=== PATIENT | male | born 1975 | race Caucasian/White ===

== ENCOUNTER 2023-07-26 11:06 | Emergency (ER) | payer MEDICARE, SELFPAY ==
[2023-07-26 11:16] VITALS: BP 151/90; PULSE 83; RESP 20; TEMP 36.8; O2SAT 93
--- NOTE | 2023-07-26 11:18 | ED.C_ITS ---
HPI - Psych 2 General: Chief Complaint: Psychiatric Symptoms Stated Complaint: MHE Time Seen by Provider: 07/26/23 11:07 Source: patient and EMS Mode of arrival: EMS Limitations: altered mental status (cognitive limitation) History of Present Illness: Patient reports generalized feeling of wanting to hurt people. Denies any SI or AVH. However to nurse he reported not wanting to hurt others but wanting to hurt himself. Reports a history of anxiety and depression. Also high blood pressure. And reflux Review of Systems 2 General: Reports: 10 or more systems reviewed and unremarkable except in HPI and below Physical Exam 2 Const: COMMON NORMALS: no acute distress, average body habitus, patient oriented x3, healthy appearing, alert and well nourished GENERAL APPEARANCE: well kempt and well developed HENMT: COMMON NORMALS: normocephalic, atraumatic, external ears normal and moist oral mucous membranes HEAD & SCALP: normocephalic and atraumatic E XTERNAL EAR: Yes external ears normal Eye: COMMON NORMALS: Equal, round and reactive pupils present, EOMs intact bilaterally and conjunctivae normal CONJUNCTIVA: Yes conjunctivae normal P UPIL: Yes Equal, round and reactive pupils present Neck/C-Spine: COMMON NORMALS: full ROM, no lymphadenopathy and supple Chest: CHEST: Yes Symmetrical chest wall rise and No Surgical scars present (Chest) Resp: COMMON NORMALS: normal respiratory effort, No retractions, No use of accessory muscles and clear to auscultation bilaterally AUSCULTATION: clear to auscultation bilaterally Cardio: COMMON NORMALS: regular rate, regular rhythm, S1 normal heart sound present, S2 normal heart sound present, No gallops present (Cardio), No clicks present (Cardio), No murmurs present (Cardio) and No rub (Cardio) RATE: r egular rate RHYTHM: regular rhythm HEART SOUNDS: S1 normal heart sound present, S2 normal heart sound present and no murmurs PERIPHERAL PULSES: o ther (Radial pulses 2+ and symmetric) GI: COMMON NORMALS: Soft to palpation, non-tender and no masses INSPECTION: No abdominal distension PALPATION: Yes Soft to palpation, No Guarding due to palpation present (GI) and No Rebound tenderness present : COMMON NORMALS: Yes no CVA tenderness BLADDER/KIDNEY EXAM: Yes no CVA tenderness Back/Pelvis: COMMON NORMALS: no CVA tenderness Extremity: COMMON NORMALS: normal to inspection, full ROM, capillary refill normal and no clubbing, cyanosis or edema Neuro: COMMON NORMALS: patient oriented x3 SENSORIUM/ORIENTATION: Yes alert Psych: COMMON NORMALS: cooperative, normal affect, speech normal, denies hallucinations and denies suicidal ideation (But reported SI to nurse) A PPEARANCE: Yes well kempt ATTITUDE: Yes calm ACTIVITY/MOTOR BEHAVIOR: Yes appropriate eye contact SPEECH: Yes normal speech MOOD & AFFECT: Yes elevated mood, No tearful and No Flat affect present THOUGHT PROCESS: No incoherent and no flight of ideas THOUGHT CONTENT: Yes Suicidality present (reported to nurse, denied to me), Yes Homicidality present (reported to me, generalized no specific person, denied to nurse) and No Hallucination(s) present ATTENTION/CONCENTRATION: Yes attention grossly intact MEMORY/COGNITION: Y es memory grossly intact INSIGHT: Fair insight present (Psych) JUDGEMENT: Limited judgement present (Psych) Skin: COMMON NORMALS: no rashes or lesions noted, no wounds, turgor normal and no jaundice GENERAL SKIN EXAM: no rashes or lesions noted and turgor normal Course 2 Reevaluation(s): Reevaluation #1: Labs returned unremarkable. Patient stable. Medically cleared for psych eval. Time: 12:23 Vital Signs: Vital signs: Vital Signs Temperature 98.3 F 07/26/23 11:16 Pulse Rate 83 07/26/23 11:16 Respiratory Rate 20 H 07/26/23 11:16 Blood Pressure 151/90 07/26/23 11:16 Pulse Oximetry 93 07/26/23 11:16 [facility] - Psych Medical Decision Making Patient complained to nurse SI, to me HI. Will get psychiatric screening labs and work on psych eval. psychiatrist Dr. Atkins consulted and came to evaluate patient. Reports the patient is okay for discharge back to nursing home. Lab Data 07/26/23 11:26 07/26/23 11:26 Laboratory Results WBC 6.36 10^3/uL (3.29-11.43) 07/26/23 11:26 RBC 5.11 10^6/uL (3.85-5.65) 07/26/23 11:26 Hgb 14.60 g/dL (11.27-16.99) 07/26/23 11:26 Hct 43.6 % (37-53) 07/26/23 11:26 MCV 85.3 fl (82-101) 07/26/23 11:26 MCH 28.6 pg (27-33) 07/26/23 11:26 MCHC 33.5 g/dL (30-55) 07/26/23 11:26 RDW 13.3 % (12.1-15.1) 07/26/23 11:26 Plt Count 230 10^3/cmm (157-399) 07/26/23 11:26 MPV 9.6 fL (7.4-10.4) 07/26/23 11:26 Neut % (Auto) 55.1 % 07/26/23 11:26 Lymph % (Auto) 34.9 % 07/26/23 11:26 [place] % (Auto) 6.8 % 07/26/23 11:26 Eos % (Auto) 2.7 % 07/26/23 11:26 Baso % (Auto) 0.3 % 07/26/23 11:26 Neut # (Auto) 3.51 10^3/uL (1.8-7.7) 07/26/23 11:26 Lymph # (Auto) 2.2 10^3/uL (0.8-4.8) 07/26/23 11:26 [place] # (Auto) 0.4 10^3/uL (0.2-0.9) 07/26/23 11:26 Eos # (Auto) 0.2 10^3/uL (0.0-0.8) 07/26/23 11:26 Baso # (Auto) 0.0 10^3/uL (0.0-0.1) 07/26/23 11:26 Nucleated RBC % (auto) 0 % 07/26/23 11:26 Nucleated RBCs # 0.0 /100WBC 07/26/23 11:26 Sodium 138 mmol/L (136-145) 07/26/23 11:26 Potassium 4.2 mmol/L (3.5-5.1) 07/26/23 11:26 Chloride 104 mmol/L (98-107) 07/26/23 11:26 Carbon Dioxide 24 mmol/L (22-29) 07/26/23 11:26 Anion Gap 14.2 (5-19) 07/26/23 11:26 BUN 15 mg/dL (6-20) 07/26/23 11:26 Creatinine 1.0 mg/dL (0.7-1.2) 07/26/23 11:26 GFR Calculation 80.4 mL/min (90-130) L 07/26/23 11:26 Glucose 101 mg/dL (65-115) 07/26/23 11:26 Calculated Osmolality 287 mOsm/kg (285-295) 07/26/23 11:26 Calcium 9.0 mg/dL (8.5-10.5) 07/26/23 11:26 Total Bilirubin 0.3 mg/dL (0.15-1.2) 07/26/23 11:26 AST 19 U/L (0-40) 07/26/23 11:26 ALT 31 U/L (0-41) 07/26/23 11:26 Alkaline Phosphatase 104 U/L (40-130) 07/26/23 11:26 Total Protein 7.1 g/dL (6.6-8.7) 07/26/23 11:26 Albumin 4.3 g/dL (3.5-5.2) 07/26/23 11:26 Globulin 2.8 g/dL (1.3-4.6) 07/26/23 11:26 Salicylates < 0.3 mg/dL (3-10) L 07/26/23 11:26 Urine Opiates Screen Negative ng/mL (Negative) 07/26/23 11:48 Acetaminophen < 5.0 ug/mL (10-30) L 07/26/23 11:26 Ur Barbiturates Screen Negative ng/mL (Negative) 07/26/23 11:48 Ur Phencyclidine Scrn Negative ng/mL (Negative) 07/26/23 11:48 Ur Amphetamines Screen Negative ng/mL (Negative) 07/26/23 11:48 U Benzodiazepines Scrn Negative ng/mL (Negative) 07/26/23 11:48 Urine Cocaine Screen Negative ng/mL (Negative) 07/26/23 11:48 U Marijuana (THC) Screen Negative ng/mL (Negative) 07/26/23 11:48 Ethyl Alcohol < 10 mg/dL (0-10) 07/26/23 11:26 No radiology studies performed this visit Discharge Plan Discharge Patient Disposition: Home Clinical Impression: Mood and affect disturbance Condition: Stable Prescriptions: No Action Unable to Assess Discharge Orders: Discharge ED (Routine); Ordered 07/26/23 Ordered By: Demetrius Robertson Referrals: Holden Alvarez Jr, MD [Staff Physician] - Discharge Diet: Usual diet Discharge Activity: Resume usual activity Patient Instructions: Anxiety (ED) Coding Level of Care Code ED Youth Counselor for Maria Elena Gentile
[2023-07-26 11:41] LABS: Basophils % 0.3 %; Eosinophils # 0.2 10^3/uL (0.0-0.8); Eosinophils % 2.7 %; Hematocrit 43.6 % (37-53); Lymphocytes # 2.2 10^3/uL (0.8-4.8); Lymphocytes % 34.9 %; Mean Corpuscular HGB Conc 33.5 g/dL (30-55); Mean Corpuscular Hemoglobin 28.6 pg (27-33); Mean Corpuscular Volume 85.3 fl (82-101); Mean Platelet Volume 9.6 fL (7.4-10.4); Monocytes # 0.4 10^3/uL (0.2-0.9); Monocytes % 6.8 %; Neutrophils # 3.51 10^3/uL (1.8-7.7); Neutrophils % 55.1 %; Nucleated Red Blood Cells % 0 %; Platelet Count 230 10^3/cmm (157-399); Red Blood Count 5.11 10^6/uL (3.85-5.65); Red Cell Distribution Width 13.3 % (12.1-15.1); White Blood Count 6.36 10^3/uL (3.29-11.43)
--- NOTE | 2023-07-26 12:03 | PC.PHAR ---
PT STATES TOOK BLOOD PRESSURE, STOMACH, AND ANXIETY MEDICATIONS THIS MORNING. STATES USES [facility]. NO PATIENT FOUND IN [facility], OR [facility]. [facility] CLOSED BEFORE I COULD GET THEM CALLED.
[2023-07-26 12:07] LABS: Alanine Aminotransferase 31 U/L (0-41); Albumin Level 4.3 g/dL (3.5-5.2); Alkaline Phosphatase 104 U/L (40-130); Anion Gap 14.2 (5-19); Aspartate Amino Transferase 19 U/L (0-40); Blood Urea Nitrogen 15 mg/dL (6-20); Carbon Dioxide 24 mmol/L (22-29); Chloride 104 mmol/L (98-107); Globulin 2.8 g/dL (1.3-4.6); Glomerular Filtration Rate 80.4 mL/min (90-130); Glucose 101 mg/dL (65-115); Osmolality Calculated 287 mOsm/kg (285-295); Potassium 4.2 mmol/L (3.5-5.1); Sodium 138 mmol/L (136-145); Total Bilirubin 0.3 mg/dL (0.15-1.2); Total Protein 7.1 g/dL (6.6-8.7)
[2023-07-26 12:08] LABS: Acetaminophen < 5.0 ug/mL (10-30); Alcohol Level < 10 mg/dL (0-10); Salicylate < 0.3 mg/dL (3-10)
[2023-07-26 12:11] LABS: Amphetamines Screen Urine Negative (Negative); Barbiturates Screen Urine Negative (Negative); Benzodiazepines Screen Urine Negative (Negative); Cocaine Screen Urine Negative (Negative); Opiate Screen Urine Negative (Negative); PCP Screen Urine Negative (Negative); THC Screen Urine Negative (Negative)
--- NOTE | 2023-07-26 15:13 | PC.NURSE ---
[facility] claims [facility] have no ride, pt has no medicaid. so called [facility] again to let them know, waiting on them to call back with transport plans.
[2023-07-26 15:20] VITALS: BP 163/82; PULSE 86; RESP 16; O2SAT 95
== END 2023-07-26 15:30 | disposition home or self-care (01) ==
PROVIDERS: Emergency Provider Emergency Medicine
DX: F39 Unspecified mood [affective] disorder (principal)
CPT/HCPCS: 80053; 80306; 80307; 85025; 99283

== ENCOUNTER → 2025-01-10 10:11 | Outpatient (BNVA) | payer MEDICARE, SELFPAY | DX: E78.5 Hyperlipidemia, unspecified (principal); Z76.89 Persons encountering health services in other specified circumstances | CPT/HCPCS: 80053; 80061; 85025 ==

== ENCOUNTER → 2025-02-15 10:42 | Outpatient (BNVA) | payer MEDICARE, SELFPAY | DX: I10 Essential (primary) hypertension (principal); R73.9 Hyperglycemia, unspecified | CPT/HCPCS: 83036 ==